=== PATIENT | female | born 1990 | race Caucasian/White ===

== ENCOUNTER → 2016-10-21 | Outpatient (CLI) | payer OTHER ==
[~2016-10-21] MED LIST: IBUP-1114 PO; PRENTAB13 PO
--- NOTE | 2016-10-22 06:43 | REP ---
Clinical: Growth evaluation. Comparison: 10/03/2016 . Findings: Examination demonstrates a single live intrauterine in cephalic presentation. motion is identified by technologist. Placenta is noted anteriorly and grade to without evidence for placenta previa or abruption. Amniotic fluid volume is low normal. Cervix measures 3.8 cm in length and appears closed. Nuchal cord cannot be excluded. Gestational age by LMP 34 weeks 3 days with [facility] 11/29/2016 . Gestational age by current measurements 32 weeks 4 days with [facility] 12/12/2016 . FHR equals 153 beats per minute. BPD 7.8 cm 31 weeks 2 days HC 29.4 cm 32 weeks 3 day AC 27.6 cm 31 weeks 5 days FL 6.8 cm 35 weeks 1 day HL 5.6 cm 32 weeks 5 days HC/AC ratio 1.07 Estimated weight 2041 grams ( 18th percentile). Amniotic fluid index: 8.0 cm (8.0 - 24 20). Umbilical cord SD ratio 2.06 (2.00 - 3.00) Impression: 1. Single live intrauterine in cephalic presentation demonstrating growth within normal range. 2. Amniotic fluid volume is lower limits of normal. Signed by Wilmer Ureña MD 10/22/2016 06:34 A
== END ==
LOC: M RAD 12:37
PROVIDERS: ATTEND Advanced Practice Midwife
DX: O36.8130 Decreased fetal movements, third trimester, not applicable or unspecified (principal)

== ENCOUNTER 2016-11-13 05:30 | Inpatient (IN) | payer OTHER ==
[~2016-11-13] VITALS: Ht 149.9 cm; Wt 60.0 kg
[2016-11-13] VITALS (40 sets, daily range): BP systolic 87–138; BP diastolic 43–84
[~2016-11-13 05:30] MED LIST changes: -PRENTAB13 PO; +PRENTAB20 PO
--- NOTE | 2016-11-13 07:10 | REPUSA ---
CLINICAL HISTORY: growth. TECHNIQUE: Realtime sonographic images were obtained in multiple projections via TA approach. The exa mination was performed by the diesel lube tech and still images were submitted for interpretation. COMMENTS: Single, live, intrauterine gestation. Vertex position. motion was identified. heart rate 157 beats per minute. Anterior placental. No evidence of placental abruption. Placental changes grade 3. Oligohydramnios. Cervical length 2.7 cm. Unremarkable maternal adnexal and pelvic cul-de-sac. Estimated gestational age is 35 weeks and 6 days. There has been less than expected interval growth since prior exam. gender wasn't documented as undetermined at this time. Nuchal CORD can't be ruled out. Cord drapes at least seen. Biparietal diameter 8.1 cm. 32 weeks and 4 days. Head circumference 30.5 cm. 34 weeks. Abdominal circumference 30.1 cm. 34 weeks and one day. Femoral length is 7 cm. 36 weeks. Humeral length is 6.2 cm. 36 weeks. Amniotic fluid index 6.2 cm. The smallest measures 1.9 cm. Estimated weight 2457 g. 6% at 37 weeks and 5 days. Resistive index 0.53 in the umbilical cord. Systolic/diastolic ratio 2.13. Resistive index 0.83 in the mid descending artery. Systolic/diastolic ratio 5.8 and the middle cerebral artery. Unremarkable anatomy as visualized. IMPRESSION: Single, live intrauterine gestation. Thank you for your kind referral of this patient.
[2016-11-13] MEDS ORDERED: LACTATED RINGER'S 1000 ML IV ONE (08:00)
[2016-11-13 08:19] LABS: MEAN CORPUSCULAR HEMOGLOBIN 28.1 pg (27.0-33.0); MEAN CORPUSCULAR HGB CONC 34.5 g/dl (32.0-36.5); MEAN CORPUSCULAR VOLUME 81.4 fl (80.0-96.0); RED CELL DISTRIBUTION WIDTH 14.2 % (11.5-14.5); WHITE BLOOD COUNT 15.5 K/mm3 (4.0-10.0)
[2016-11-13] MEDS: LR 1,000 ML IV SCH ×3 (09:07→18:23)
[2016-11-13] MEDS ORDERED: FENTANYL 2MCG/ML ROPIVACAINE 0.2% IN 0.9% NACL 200ML IVBAG As Ordered ONE (09:11)
[2016-11-13] MEDS ORDERED: REFRIGERATOR IV KEYS XX PRN (12:00)
[2016-11-13] MEDS ORDERED: FENTANYL/ROPIVACAINE/NACL BAG 200 ML EPIDURAL SCH (12:00)
[2016-11-13] MEDS ORDERED: ePHEDrine SULFATE 25 MG/5 ML(5MG/ML) SYRINGE IV PRN (12:00)
[2016-11-13] MEDS ORDERED: diphenhydrAMINE INJ 50MG/ML VIAL (J1200) IV PRN (12:00)
[2016-11-13] MEDS ORDERED: NALOXONE INJ 0.4 MG/1 ML VIAL (J2310) IV PRN (12:00)
[2016-11-13] MEDS ORDERED: ONDANSETRON 4MG/2ML VIAL (J2405) IV PRN (12:00)
[2016-11-13] MEDS ORDERED: EPIDURAL COMMENT XX SCH (12:00)
[2016-11-13] MEDS ORDERED: LACTATED RINGER'S 1000 ML IV PRN (12:00)
[2016-11-13] MEDS ORDERED: EPIDURAL/PCA KEYS XX PRN (12:00)
--- NOTE | 2016-11-13 13:14 | HPE ---
DATE OF ADMISSION: 11/13/2016 This 26-year-old 4, para 2, abortio 1, last menstrual period 02/23/2016, estimated date of confinement (EDC) 11/29/2016 at 37 of 5 weeks of gestation, called because of a loss of mucus plug and contractions. When she was seen here 2 hours after having been initially discussed on the phone, she was in active labor. We noted she had a intrauterine growth restriction, oligohydramnios, and she is a smoker. She actually had a cigarette prior to coming in for evaluation. Risk factors is IUGR, oligohydramnios and substance abuse. PAST HISTORY: In 2012 at 36 weeks, induction of labor for IUGR, female, 4 pounds 3 ounces. In 2015 at 40 weeks, induction of labor, female 6 pounds 1 ounce. Had a spontaneous in 2010 between 10 and 12 weeks. Her blood pressure 126/77, respirations are 20, pulse 86, temperature 99.3. Urine is 1005, pH of 5, negative, negative, negative. Hemoglobin 10.5, hematocrit 32.0, platelets 293. Category two strip secondary to her smoking. There is minimal variability and we are giving her some oxygen in order to increase flow to the baby. PHYSICAL EXAMINATION: She appears distressed. Symphysis fundus height is 34, 3 cm 100 percent effaced, -2 station. Ultrasound suggests IUGR at the 6th percentile with oligohydramnios and a grade 3 placenta with particulate matter in the amniotic fluid. Labs are A+, HIV negative, hepatitis negative, RPR negative, rubella immune. Varicella immune. Pap normal. Urine negative. Gonorrhea and chlamydia negative. 1-hour glucose was 83. GBS is negative. The rest the examination is unremarkable. She is normocephalic, atraumatic. Neck: Full range of motion. Pupils equal and reactive to light. She has multiple tattoos. Distal pulses are symmetric. No evidence of DVT, PE or superficial phlebitis. Chest is clear bilaterally to bases. No wheezes or rhonchi. No CVA tenderness. Symphysis fundus height is inappropriate for gestational age of 37 weeks, strongly suggestive IUGR. Four quadrant bowel sounds are noted. She has multiple tattoos. No rashes or lesions. No arthralgia or myalgia. No complaint cough, wheezes, shortness of breath or dyspnea on exertion. No chest pain. Not bleeding. Neuro complete. No incontinence, urgency or frequency. No nausea, vomiting, diarrhea or constipation. No diabetic issues. No [employer] issues. PAST MEDICAL HISTORY: Unremarkable. PAST SURGICAL HISTORY: Unremarkable. FAMILY HISTORY: Noncontributory. SOCIAL HISTORY: She does partake in tobacco. No alcohol. No drug abuse. She is to a soldier. There is no domestic violence. In summary, we have a term gestation with oligohydramnios, IUGR, early labor. Plan of management is to hydrate the patient, oxygenate the patient for the baby because she had recent exposure to tobacco, augment with Pitocin, epidural at the appropriate interval. Neonatology consult. The plan of care was discussed with both and the patient, seems to be acceptable by both.
[2016-11-13] MEDS ORDERED: OXYTOCIN 30 UNITS IN 0.9% NaCl 500ML IV BAG (J2590) As Ordered ONE (16:08)
[2016-11-13] MEDS ORDERED: OXYTOCIN DRIP 30 UNITS in APPROPRIATE DILUENT 1 EA IV SCH (16:23)
[2016-11-13] MEDS ORDERED: METOCLOPRAMIDE INJ 10MG/2ML VIAL (J2765) IV PRN (16:30)
[2016-11-13] MEDS ORDERED: IBUPROFEN 800 MG TAB PO PRN (16:30)
[2016-11-13] MEDS ORDERED: DOCUSATE SODIUM 100 MG CAP PO PRN (16:30)
[2016-11-13] MEDS ORDERED: METHYLERGONOVINE MALEATE 0.2 MG TAB PO PRN (16:30)
[2016-11-13] MEDS ORDERED: DIBUCAINE 1% OINTMENT 30GM TOP PRN (16:30)
[2016-11-13] MEDS ORDERED: MEASLES,MUMPS,RUBELLA VACCINE INJ (MMR-II) (90707) SC SCH (16:30)
[2016-11-13] MEDS ORDERED: MOM 30ML SUSPENSION UDC PO PRN (16:30)
[2016-11-13] MEDS ORDERED: ACETAMINOPHEN 500 MG TAB PO PRN (16:30)
[2016-11-13] MEDS ORDERED: SODIUM CHLORIDE 0.9% 1000 ML IV SCH (16:30)
[2016-11-13] MEDS ORDERED: RHOGAM 300 MCG (1500 IU) INJ (J2790) IM SCH (16:30)
[2016-11-14 06:14] VITALS: BP 109/62
[2016-11-14] MEDS ORDERED: IBUP-1114 PO (08:03)
[2016-11-14] MEDS ORDERED: ACET50TA PO (08:03)
[2016-11-14] MEDS ORDERED: COLA100C5 PO (08:03)
[2016-11-14] MEDS ORDERED: NUPE1OIN2 TOP (08:04)
[2016-11-14] MEDS ORDERED: PRENATAL VITAMINS CHEWABLE TABLET PO SCH (09:00)
== END 2016-11-14 11:00 | disposition home or self-care (01) | DRG 775 ==
LOC: M LDO 05:30 → M LDI 07:19 → M OBS 18:31
PROVIDERS: ADMIT Obstetrics & Gynecology; ATTEND Obstetrics & Gynecology
PROC: 10E0XZZ Delivery of Products of Conception, External Approach (ICD-10-PCS; principal; 2016-11-13)
DX: O41.03X0 Oligohydramnios, third trimester, not applicable or unspecified (principal); O99.334 Smoking (tobacco) complicating childbirth; Z37.0 Single live birth; Z3A.37 37 weeks gestation of pregnancy; O36.5930 Maternal care for other known or suspected poor fetal growth, third trimester, not applicable or unspecified; F17.210 Nicotine dependence, cigarettes, uncomplicated; O69.89X0 Labor and delivery complicated by other cord complications, not applicable or unspecified

== ENCOUNTER → 2017-01-13 | Outpatient (CLI) | payer OTHER ==
[~2017-01-13] MED LIST changes: +ACET50TA PO; +COLA100C5 PO; +NUPE1OIN2 TOP
--- NOTE | 2017-01-13 19:26 | REP ---
LEFT FOOT COMPLETE: 01/13/2017. Clinical history: Pain. Technique: Four views are provided. Findings: Calcaneus and talus are without fracture or focal bone lesion. They articulate normally with the tarsal bones and each other. Subtalar joints intact. Distal tibia and fibula grossly intact. Tarsal bones, metatarsals and phalanges without fracture, foreign bodies. Impression: 1. Negative left foot series for fracture or other acute finding. Signed by Carlos Manuel Wakefield MD 01/14/2017 04:52 P
== END ==
LOC: M LRY 18:36
PROVIDERS: ATTEND Nurse Practitioner Family
DX: M79.672 Pain in left foot (principal)
CPT/HCPCS: 73630; G0463